=== PATIENT | male | born 1995 | race Caucasian/White ===

== ENCOUNTER 2021-09-17 17:26 | Emergency (ER) | payer BC, OTHER ==
[2021-09-17] MEDS ORDERED: Fluorescein 1 MG Ophth Strip EYELF ONE (17:38)
[2021-09-17] MEDS ORDERED: Proparacaine 0.5% Ophth Soln 15 ML Bottle EYERT STA (17:39)
[2021-09-17] MEDS ORDERED: Diphtheria,Pertussis(Acell),Tetanus Vaccine 0.5 ML Syringe IM ONE (18:02)
[2021-09-17] MEDS ORDERED: Erythromycin Base 0.5% Ophth Oint 1 GM Tube EYEBOTH ONE (18:13)
== END 2021-09-17 18:30 | disposition home or self-care (01) ==
LOC: JD.ED 17:26
DX: S05.02XA Injury of conjunctiva and corneal abrasion without foreign body, left eye, initial encounter (principal); Z23 Encounter for immunization; W22.09XA Striking against other stationary object, initial encounter
CPT/HCPCS: 65222; 90471; 90715; 99283; A9270; 65220